=== PATIENT | female | born 1985 | race Caucasian/White ===

== ENCOUNTER 2019-04-23 18:04 | Emergency (ER) | payer BC ==
[~2019-04-23] VITALS: Ht 149.9 cm; Wt 50.5 kg
[2019-04-23 18:13] VITALS: Ht 149.9 cm; Wt 50.5 kg
[2019-04-23 20:53] VITALS: BP 95/60
== END 2019-04-23 20:53 | disposition home or self-care (01) ==
LOC: ED 18:04
DX: J40 Bronchitis, not specified as acute or chronic (principal); Z98.51 Tubal ligation status